=== PATIENT | male | born 1950 | race Two or more races ===

== ENCOUNTER 2022-09-16 20:11 | Emergency (ER) | payer OTHER ==
[~2022-09-16] VITALS: Ht 185.4 cm; Wt 99.8 kg
--- NOTE | 2022-09-16 20:45 | NUR ---
Dr. Torres at bedside for MSE.
[2022-09-16] MEDS ORDERED: ONDANSETRON 4 MG/2 ML VIAL ONE (20:58)
[2022-09-16] MEDS ORDERED: ONDANSETRON 4 MG/2 ML VIAL IV ONE (21:00)
[2022-09-16] MEDS ORDERED: IV NS 1000 ML 1,000 ML IV ONE ×2 (21:00→22:30)
[2022-09-16 21:26] LABS: HEMATOCRIT 43.1 % (36.7-47.1); MEAN CORPUSCULAR VOLUME 91.4 fL (73.0-96.2); PLATELET COUNT (AUTO) 243 K/uL (152-348)
[2022-09-16 21:43] LABS: CREATININE 1.1 mg/dL (0.6-1.3); POTASSIUM 4.6 mmol/L (3.5-5.1)
[2022-09-16 21:48] LABS: *BILIRUBIN,URIN NEGATIVE (NEGATIVE); *CLARITY,URINE CLEAR (CLEAR); *COLOR,URINE YELLOW (YELLOW); *KETONES,URINE 3+ (NEGATIVE); *UROBILINOGEN,URINE 0.2 E.U./dl (NORMAL); LEUKOCYTE ESTERASE ,URINE TRACE (NEGATIVE); NITRITE, URINE POSITIVE (NEGATIVE); UGLUCOSE 3+ (NEGATIVE)
[2022-09-16 21:48] LABS: BILIRUBIN,TOTAL 1.2 mg/dL (0.2-1.0); MAGNESIUM 2.1 mg/dL (1.8-2.4); TOTAL PROTEIN, SERUM 6.6 g/dL (6.4-8.2)
[2022-09-16 21:49] LABS: *BLOOD, URINE TRACE (NEGATIVE)
[2022-09-16] MEDS ORDERED: INSULIN REGULAR, HUMAN 300 UNIT/3 ML VIAL SQ ONE (22:15)
[2022-09-16] MEDS ORDERED: INSULIN REGULAR, HUMAN 300 UNIT/3 ML VIAL ONE (22:16)
--- NOTE | 2022-09-17 01:00 | NUR ---
Patient discharged to home in stable condition. Written and verbal after care instructions given. Patient verbalizes understanding of instructions. Stressed follow up or return to ER for worsening s/s. Patient out of ER with steady gait, no acute signs of distress, VSS, all belongings taken, IV site discontinued, provided with copies of lab results.
[2022-09-17 01:02] VITALS: BP 135/69; O2SAT 95
[2022-09-17 07:20] LABS: BACTERIA,URINE MAN /HPF (NONE SEEN); SQUAMOUS EPITHELIAL CELL,UR FEW /HPF (NONE SEEN)
== END 2022-09-17 01:02 | disposition home or self-care (01) ==
LOC: ER 20:11
DX: E86.0 Dehydration (principal); N39.0 Urinary tract infection, site not specified; R53.1 Weakness; E11.65 Type 2 diabetes mellitus with hyperglycemia
CPT/HCPCS: 99284; 96374; 96361; 96375; 80053; 81001; 82962 ×2; 83735; 85025; 84484; 36415; J2405; J1815; J7040 ×2; A4663